=== PATIENT | female | born 1970 | race Caucasian/White ===

== ENCOUNTER 2023-04-02 06:00 | Day surgery (SDC) | payer OTHER ==
[~2023-04-02] VITALS: Ht 152.4 cm; Wt 49.0 kg
== END 2023-04-02 13:00 | disposition home or self-care (01) ==
LOC: CIR.AMB 06:00
PROVIDERS: ATTEND Orthopaedic Surgery
DX: S52.022A Displaced fracture of olecranon process without intraarticular extension of left ulna, initial encounter for closed fracture (principal); M25.522 Pain in left elbow; Z20.822 Contact with and (suspected) exposure to COVID-19
CPT/HCPCS: 24685; 20900; L8699

== ENCOUNTER 2023-04-26 13:20 | Outpatient (CLI) | payer OTHER | END 2023-04-26 13:29 | disposition home or self-care (01) | LOC: RAD 13:20 | PROVIDERS: ATTEND Orthopaedic Surgery | DX: S52.022D Displaced fracture of olecranon process without intraarticular extension of left ulna, subsequent encounter for closed fracture with routine healing (principal) ==